=== PATIENT | female | born 1985 | race Caucasian/White ===

== ENCOUNTER → 2017-01-03 | Outpatient (CLI) | payer OTHER | LOC: LAB 10:29 | PROVIDERS: ATTEND Family Medicine | DX: E03.9 Hypothyroidism, unspecified (principal); N93.9 Abnormal uterine and vaginal bleeding, unspecified; R53.83 Other fatigue | CPT/HCPCS: 36415; 84443 ==

== ENCOUNTER → 2017-09-27 | Outpatient (CLI) | payer OTHER ==
[2017-09-27 10:24] LABS: ALANINE AMINOTRANSFERASE 25 U/L (9-52); ALBUMIN 3.9 g/dL (3.5-5.0); ALKALINE PHOSPHATASE 77 U/L (38-126); ANION GAP 11 (5-19); ASPARTATE AMINO TRANSFERASE 21 U/L (14-36); BILIRUBIN,DIRECT 0.2 mg/dL (0.0-0.4); BILIRUBIN,TOTAL 0.5 mg/dL (0.2-1.3); BLOOD UREA NITROGEN 13 mg/dL (7-20); CALCIUM 8.9 mg/dL (8.4-10.2); CARBON DIOXIDE 24 mmol/L (22-30); CHLORIDE 108 mmol/L (98-107); CHOLESTEROL 195.95 mg/dL (0-200); CREATINE KINASE 69 U/L (30-135); GLUCOSE 81 mg/dL (75-110); POTASSIUM 4.6 mmol/L (3.6-5.0); SODIUM 143.4 mmol/L (137-145); TOTAL PROTEIN 6.7 g/dL (6.3-8.2); TRIGLYCERIDES 75 mg/dL (<150)
[2017-09-27 10:36] LABS: DIRECT LDL 142 mg/dL (<100)
== END ==
LOC: OD 09:14
PROVIDERS: ATTEND Internal Medicine Cardiovascular Disease
DX: E78.2 Mixed hyperlipidemia (principal); R07.9 Chest pain, unspecified; I10 Essential (primary) hypertension
CPT/HCPCS: 36415; 80048; 80061; 80076; 82550; 83036

== ENCOUNTER → 2018-08-13 | Outpatient (CLI) | payer BC, OTHER ==
[2018-08-13 08:45] LABS: HEMATOCRIT 39.3 % (36.0-47.0); HEMOGLOBIN 12.9 g/dL (12.0-15.5); MEAN CORPUSCULAR HEMOGLOBIN 25.9 pg (27.0-33.4); MEAN CORPUSCULAR HGB CONC 32.9 g/dL (32.0-36.0); MEAN CORPUSCULAR VOLUME 79 fl (80-97); PLATELET COUNT 312 10^3/uL (150-450); RED CELL DISTRIBUTION WIDTH 16.2 % (11.5-14.0); WHITE BLOOD COUNT 5.8 10^3/uL (4.0-10.5)
[2018-08-13 09:22] LABS: ALANINE AMINOTRANSFERASE 45 U/L (9-52); ALBUMIN 3.8 g/dL (3.5-5.0); ALKALINE PHOSPHATASE 109 U/L (38-126); ANION GAP 8 (5-19); ASPARTATE AMINO TRANSFERASE 30 U/L (14-36); BILIRUBIN,DIRECT 0.3 mg/dL (0.0-0.4); BILIRUBIN,TOTAL 0.4 mg/dL (0.2-1.3); BLOOD UREA NITROGEN 13 mg/dL (7-20); CALCIUM 8.8 mg/dL (8.4-10.2); CARBON DIOXIDE 25 mmol/L (22-30); CHLORIDE 106 mmol/L (98-107); CHOLESTEROL 196.16 mg/dL (0-200); GLUCOSE 80 mg/dL (75-110); POTASSIUM 4.3 mmol/L (3.6-5.0); SODIUM 139.2 mmol/L (137-145); TOTAL PROTEIN 6.9 g/dL (6.3-8.2); TRIGLYCERIDES 89 mg/dL (<150)
[2018-08-13 09:33] LABS: DIRECT LDL 122 mg/dL (<100)
== END ==
LOC: LAB 08:12
PROVIDERS: ATTEND Internal Medicine Cardiovascular Disease
DX: I10 Essential (primary) hypertension (principal); R07.9 Chest pain, unspecified; E78.00 Pure hypercholesterolemia, unspecified
CPT/HCPCS: 36415; 80048; 80061; 80076; 83036; 84443; 85027

== ENCOUNTER → 2019-08-03 | Outpatient (CLI) | payer BC ==
[2019-08-03 08:45] LABS: ABSOLUTE EOSINOPHILS # (AUTO) 0.1 10^3/uL (0.0-0.6); ABSOLUTE LYMPHOCYTES (AUTO) 1.4 10^3/uL (0.5-4.7); ABSOLUTE MONOCYTES (AUTO) 0.5 10^3/uL (0.1-1.4); ABSOLUTE NEUT (AUTO) 4.3 10^3/uL (1.7-8.2); BASOPHILS % (AUTO) 0.3 % (0-2); EOSINOPHILS % (AUTO) 1.4 % (0-6); HEMATOCRIT 39.3 % (36.0-47.0); HEMOGLOBIN 13.2 g/dL (12.0-15.5); LYMPHOCYTES % (AUTO) 22.4 % (13-45); MEAN CORPUSCULAR HEMOGLOBIN 26.3 pg (27.0-33.4); MEAN CORPUSCULAR HGB CONC 33.6 g/dL (32.0-36.0); MEAN CORPUSCULAR VOLUME 78 fl (80-97); MONOCYTES % (AUTO) 8.6 % (3-13); PLATELET COUNT 302 10^3/uL (150-450); RED BLOOD COUNT 5.03 10^6/uL (3.72-5.28); RED CELL DISTRIBUTION WIDTH 15.2 % (11.5-14.0); SEGMENTED NEUTROPHILS % (AUTO) 67.3 % (42-78); TOTAL CELLS COUNTED % (AUTO) 100 %; WHITE BLOOD COUNT 6.4 10^3/uL (4.0-10.5)
[2019-08-03 09:00] LABS: ALBUMIN 3.9 g/dL (3.5-5.0); ALKALINE PHOSPHATASE 119 U/L (38-126); ANION GAP 5 (5-19); ASPARTATE AMINO TRANSFERASE 42 U/L (14-36); BILIRUBIN,TOTAL 0.3 mg/dL (0.2-1.3); BLOOD UREA NITROGEN 20 mg/dL (7-20); CALCIUM 8.8 mg/dL (8.4-10.2); CARBON DIOXIDE 27 mmol/L (22-30); CHLORIDE 106 mmol/L (98-107); CHOLESTEROL 205.84 mg/dL (0-200); GLUCOSE 85 mg/dL (75-110); POTASSIUM 4.5 mmol/L (3.6-5.0); TOTAL PROTEIN 6.7 g/dL (6.3-8.2); TRIGLYCERIDES 131 mg/dL (<150)
[2019-08-03 09:14] LABS: DIRECT LDL 143 mg/dL (<100)
[2019-08-03 09:21] LABS: FREE T3 3.88 pg/mL (2.77-5.27); FREE T4 (FREE THYROXINE) 0.89 ng/dL (0.78-2.19)
[2019-08-03 09:34] LABS: THYROID STIMULATING HORMONE 2.81 uIU/mL (0.47-4.68)
== END ==
LOC: LAB 08:16
PROVIDERS: ATTEND Internal Medicine Geriatric Medicine
DX: I10 Essential (primary) hypertension (principal); R53.83 Other fatigue; Z13.9 Encounter for screening, unspecified
CPT/HCPCS: 36415; 80053; 80061; 84436; 84439; 84443; 84481; 84482; 85025; 86376

== ENCOUNTER → 2019-10-30 | Outpatient (CLI) | payer BC | LOC: RDC 13:56 | PROVIDERS: ATTEND Nurse Practitioner Family | DX: Z53.9 Procedure and treatment not carried out, unspecified reason (principal) | CPT/HCPCS: 87635; C9803 ==

== ENCOUNTER → 2019-12-15 | Outpatient (CLI) | payer BC ==
--- NOTE | 2019-12-15 18:07 | RADIOLOGY REPORT (SQ) ---
EXAM DESCRIPTION: U/S NON-OB PELVIS W/O DOP IMAGES COMPLETED DATE/TIME: 12/15/2019 5:21 pm REASON FOR STUDY: N92.0 EXCESSIVE AND FREQUENT MENSTRUATION WITH REGULAR CYCLE N92.0 EXCESSIVE AND FREQUENT MENSTRUATION WITH REGULAR CYCLE LMP 11/20/2019 COMPARISON: None. TECHNIQUE: Dynamic and static grayscale images acquired of the pelvis via transabdominal approach an d recorded on PACS. Additional selected color Doppler and spectral images recorded. LIMITATIONS: None. FINDINGS: UTERUS: Contour normal. No mass. ENDOMETRIAL STRIPE: No focal or generalized thickening. No masses. CERVIX: 2.4 cm. No nabothian cysts. RIGHT OVARY AND DOPPLER: Normal size. No worrisome masses. Normal arterial vascular flow without evid ence for torsion. LEFT OVARY AND DOPPLER: Ovary not seen. FREE FLUID: None noted. OTHER: No other significant finding. MEASUREMENTS: UTERUS: 7.8 x 4.1 x 3.3 cm. ENDOMETRIAL STRIPE: 2 mm. RIGHT OVARY: 3.1 x 2.1 x 1.8 cm. LEFT OVARY: Not seen. IMPRESSION: NORMAL PELVIC ULTRASOUND BY TRANSABDOMINAL TECHNIQUE. TECHNICAL DOCUMENTATION: JOB ID: [id number] 2010 [employer]- All Rights Reserved Rev-09/20 Reading location - IP/workstation name: [email or web address]
== END ==
LOC: RAD 15:56
PROVIDERS: ATTEND Obstetrics & Gynecology Gynecology
DX: N92.0 Excessive and frequent menstruation with regular cycle (principal)
CPT/HCPCS: 76856

== ENCOUNTER 2020-03-18 13:01 | Day surgery (SDC) | payer BC ==
[2020-03-18] MEDS ORDERED: LIDOCAINE 2% INJ (20 MG/ML) 20 ML MDV ONE (13:49)
[2020-03-18] MEDS ORDERED: PROPOFOL INJ 200 MG/20 ML VIAL IV ONE (13:49)
--- NOTE | 2020-03-18 14:53 | Operative Report ---
Operative Report DATE OF SURGERY: 03/18/20 Operative Report: Pre-op diagnosis: History of colon polyps and reflux disease Post-op diagnosis: 1. Antral gastritis 2. Fundal polyp 3. Transverse colon polyp Surgery: Upper endoscopy with biopsy and Colonoscopy with polypectomy Medications: As per anesthesia Tissue removed: Gastric antral and body biopsy, gastric polyp and colon polyp Procedure: After informed consent obtained from patient, patient's pharynx was sprayed with Hurricane and conscious sedation was achieved. The upper endoscope was then inserted into the esophagus under direct vision and advanced into the stomach and further into the duodenum. Detailed examination of the duodenum, stomach and the esophagus was then performed. A digital rectal examination was performed and this was unremarkable. The colonoscope was inserted into the rectum and advanced to the cecum. The appendiceal orifice and the terminal ileum were both identified. The mucosa was examined into details as the colonoscope was slowly pulled out of the patient. The endoscope was retroflexed in the rectum. Patient tolerated the procedure well. Findings Esophagus: Normal. Z-line was at 38 cm Stomach: Mild erythema noted in the gastric antrum. A 3 mm polyp was removed from the fundus. Duodenum: Normal Cecum: Normal Ascending colon: Normal Transverse colon: 4 mm polyp removed from the proximal transverse colon with a cold polypectomy snare Descending colon: Normal Sigmoid colon: Normal Rectum: Normal except for internal hemorrhoids Plan: Await pathology. Repeat colonoscopy in 5 years OPERATION: .
[2020-03-18 15:38] VITALS: BP 132/65
== END 2020-03-18 15:40 | disposition home or self-care (01) ==
LOC: END 13:01
PROVIDERS: ATTEND Internal Medicine Gastroenterology
DX: D12.3 Benign neoplasm of transverse colon (principal); K29.50 Unspecified chronic gastritis without bleeding; K31.7 Polyp of stomach and duodenum; K21.9 Gastro-esophageal reflux disease without esophagitis; R06.6 Hiccough; I10 Essential (primary) hypertension; Z83.71 Family history of colonic polyps; Z86.010 Personal history of colon polyps; Z98.51 Tubal ligation status; Z79.899 Other long term (current) drug therapy; Z03.818 Encounter for observation for suspected exposure to other biological agents ruled out; Z80.0 Family history of malignant neoplasm of digestive organs; Z85.41 Personal history of malignant neoplasm of cervix uteri; Z87.19 Personal history of other diseases of the digestive system
CPT/HCPCS: 43239; 45385; 88305 ×2; 00813; U0003; J3490; J2704; C9803; 813; 87635; 88342

== ENCOUNTER → 2020-04-27 | Outpatient (CLI) | payer BC ==
[~2020-04-27] MED LIST: COVID-19 VACCINE (PFIZER)/PF 30 MCG/0.3 ML VIAL IM ONE; EPINEPHRINE INJ/PF 1 MG/1 ML AMPULE IM PRN
== END ==
LOC: EMPHEALTH 09:52
PROVIDERS: ATTEND Internal Medicine
DX: Z23 Encounter for immunization (principal)
CPT/HCPCS: 91300

== ENCOUNTER → 2020-05-18 | Outpatient (CLI) | payer BC | LOC: EMPHEALTH 10:04 | PROVIDERS: ATTEND Internal Medicine | DX: Z23 Encounter for immunization (principal) | CPT/HCPCS: 91300 ==